=== PATIENT | female | born 1985 | race African-American/Black ===

== ENCOUNTER 2024-03-18 21:39 | Emergency (ER) | payer BC ==
[~2024-03-18] VITALS: Ht 172.7 cm; Wt 73.0 kg
[2024-03-18 21:44] VITALS: O2SAT 97
[2024-03-18] MEDS ORDERED: DEXT30SU17 MT (23:14)
[2024-03-18] MEDS ORDERED: IBUP-1523 MT (23:14)
[2024-03-18] MEDS ORDERED: TOPUD MT (23:14)
[2024-03-18] MEDS ORDERED: ALBU2.5V13 NEB (23:14)
[2024-03-18] MEDS ORDERED: P50 MT (23:14)
[2024-03-18] MEDS: IPRATROPIUM/ALBUTEROL 0.5-3(2.5)MG/3ML NEB HHN ONE (23:42)
[2024-03-18] MEDS: PREDNISONE 20MG TABLET PO ONE (23:58)
[2024-03-19] MEDS: METHYLPREDNISOLONE SOD SUCC 125MG/2ML (ACT-O-VIAL) IV ONE (00:05)
[2024-03-19] MEDS: SODIUM CHLORIDE 0.9% 500 ML IV ONE (00:06)
[2024-03-19] MEDS: MAGNESIUM 2 G PREMIX 50 ML IV ONE (01:47)
[2024-03-19 01:52] VITALS: BP 126/81; PULSE 70; RESP 18; TEMP 36.66960; O2SAT 100
[2024-03-19] MEDS ORDERED: ALBU90AE INH (01:53)
== END 2024-03-19 02:02 | disposition home or self-care (01) ==
LOC: ER 21:39
DX: J45.901 Unspecified asthma with (acute) exacerbation (principal); Z79.899 Other long term (current) drug therapy
CPT/HCPCS: 99283; 96374; J7512; J2919; Z7610; J7040; J3475